=== PATIENT | female | born 1955 | race Caucasian/White ===

== ENCOUNTER 2020-09-15 19:37 | Emergency (ER) | payer BC ==
[~2020-09-15] VITALS: Ht 165.1 cm; Wt 79.4 kg
[2020-09-15 19:37] VITALS: BP 142/76
[2020-09-15] MEDS ORDERED: LIDOCAINE HCL/MPF 1% 30 ML VIAL IJ ONE (19:52)
[2020-09-15] MEDS ORDERED: TDAP [DIPH/PERTUSSIS/TET] 0.5 ML VIAL IM ONE ×2 (20:00→20:41)
[2020-09-15] MEDS ORDERED: LIDOCAINE HCL/PF 1% 30 ML VIAL TP ONE (20:00)
== END 2020-09-15 21:00 | disposition home or self-care (01) ==
LOC: ER 19:40
DX: S61.215A Laceration without foreign body of left ring finger without damage to nail, initial encounter (principal); Z88.2 Allergy status to sulfonamides; W26.8XXA Contact with other sharp object(s), not elsewhere classified, initial encounter; Y93.89 Activity, other specified; Y92.89 Other specified places as the place of occurrence of the external cause; Y99.8 Other external cause status
CPT/HCPCS: 12001; 90471; 90715; 99283; J3490 ×2